=== PATIENT | female | born 1990 | race Hispanic/Latino ===

== ENCOUNTER 2021-08-27 21:31 | Inpatient (IN) | payer BC, OTHER ==
[2021-08-27 21:57] VITALS: BMI 35.6
[2021-08-27] MEDS ORDERED: Promethazine HCl 25 MG/ML VIAL IM PRN (22:27)
[2021-08-27] MEDS ORDERED: hydrALAZINE 20 MG/ML VIAL SLOW IVP PRN (22:27)
[2021-08-27] MEDS ORDERED: Ondansetron PF 4 MG/2 ML Vial IVP PRN (22:27)
[2021-08-27] MEDS ORDERED: Morphine 10 MG/ML VIAL SLOW IVP SCH (22:45)
[2021-08-27] MEDS ORDERED: Lactated Ringer's 1,000 ML IV SCH ×2 (23:00)
[2021-08-27 23:17] LABS: Hemoglobin 10.7 g/dL (12.0-15.5); Mean Corpuscular Volume 88.2 fl (81.6-98.3); Mean Platelet Volume 12.7 fl (7.4-10.4); Platelet Count 177 10x3/uL (150-450); RBC Distribution Width 13.4 % (11.5-14.5); Red Blood Cell (RBC) Count 3.57 10x6/uL (3.90-5.03); White Blood Cell (WBC) Count 7.9 10x3/uL (3.5-10.5)
[2021-08-27] MEDS: Promethazine HCl 25 MG/ML VIAL IM SCH (23:24)
[2021-08-28 00:01] LABS: Syphilis Antibody Nonreactive (Nonreactive); Syphilis Antibody Index 0.02 S/CO (<1.00 Non-Reactive)
[2021-08-28 00:02] LABS: Hep B Surf Ag Non-Reactive S/CO (NonReactive)
[2021-08-28 00:05] LABS: HBSAg Index 0.13 S/CO (0-0.99)
[2021-08-28] MEDS: Promethazine HCl 25 MG/ML VIAL IM SCH (00:16)
[2021-08-28] MEDS ORDERED: Famotidine/PF 20 mg/2ml Vial SLOW IVP PRN (00:56)
[2021-08-28] MEDS ORDERED: Bicitra 30 ML UDCUP PO PRN (00:56)
[2021-08-28] MEDS ORDERED: ceFAZolin 2 GM/Dextrose 50 ML 2 GM in Premix Bag 1 BAG IVPB SCH (01:00)
[2021-08-28] MEDS ORDERED: ceFAZolin 2 GM/Dextrose 50 ML IVPB ONE (01:02)
[2021-08-28] MEDS ORDERED: Oxytocin 10 UNITS/ML VIAL ONE ×2 (01:12→01:51)
[2021-08-28] MEDS ORDERED: Ondansetron PF 4 MG/2 ML Vial ONE (01:12)
[2021-08-28] MEDS ORDERED: Dexamethasone 4 mg/ml Vial ONE (01:12)
[2021-08-28] MEDS ORDERED: Phenylephrine 40 MG/NS 250 ML 250 ML ONE (01:13)
[2021-08-28] MEDS ORDERED: Ketorolac Tromethamine 30 MG/ML VIAL ONE (01:13)
[2021-08-28] MEDS ORDERED: Morphine PF 10 MG/10 ML VIAL ONE (01:13)
[2021-08-28] MEDS ORDERED: ePHEDrine Sulfate 50 MG/10 ML VIAL ONE (01:25)
[2021-08-28] MEDS ORDERED: diphenhydrAMINE 50 MG/ML VIAL IVP PRN (01:38)
[2021-08-28] MEDS ORDERED: Fentanyl 100 MCG/2 ML VIAL SLOW IVP PRN (01:38)
[2021-08-28] MEDS ORDERED: Ondansetron HCl/PF 4 MG/2 ML Vial IVP PRN (01:38)
[2021-08-28] MEDS ORDERED: Hydrocerin (Eucerin) Cream 120 gm Jar TOP PRN (01:38)
[2021-08-28] MEDS ORDERED: Naloxone HCl 0.4 mg/ml Vial IVP PRN ×2 (01:38)
[2021-08-28] MEDS ORDERED: Naloxone HCl 0.4 mg/ml Vial IV PRN (01:38)
[2021-08-28] MEDS ORDERED: L&D-Morphine 4 MG/ML VIAL SLOW IVP PRN (01:38)
[2021-08-28] MEDS ORDERED: Meperidine HCl/PF 25 MG/ML VIAL SLOW IVP PRN (01:38)
[2021-08-28] MEDS ORDERED: Promethazine HCl 25 MG/ML VIAL IM PRN (01:38)
[2021-08-28] MEDS ORDERED: Ondansetron PF 4 MG/2 ML Vial IVP PRN ×2 (01:38→04:46)
[2021-08-28] MEDS ORDERED: Promethazine HCl 25 MG SUPP PR PRN (01:38)
[2021-08-28] MEDS ORDERED: Communication Order-Pharmacy FS SCH (01:45)
[2021-08-28] MEDS ORDERED: Ketorolac Tromethamine 30 MG/ML VIAL IVP SCH (01:45)
[2021-08-28] MEDS ORDERED: diphenhydrAMINE 50 MG/ML VIAL ONE (01:56)
[2021-08-28] MEDS ORDERED: Esmolol 100 MG/10 ML VIAL ONE (02:04)
[2021-08-28] MEDS ORDERED: PHENYLEPHRINE-NS 100 MCG/ML 10 ML SYRINGE ONE (02:24)
[2021-08-28] MEDS ORDERED: Fentanyl 100 MCG/2 ML VIAL ONE (03:34)
[2021-08-28 04:02] LABS: ALT (SGPT) 28 U/L (8-55); AST (SGOT) 63 U/L (5-34); Albumin 3.1 g/dL (3.5-5.0); Alkaline Phosphatase 147 U/L (40-110); Anion Gap 16 mmol/L (10-20); BUN (Urea Nitrogen) 7 mg/dL (7.0-18.7); Bilirubin, Total 0.3 mg/dL (0.2-1.2); Calc. Creatinine Clearance 232 mL/min (70-130); Calcium 8.6 mg/dL (7.8-10.44); Carbon Dioxide 18 mmol/L (22-29); Chloride 105 mmol/L (98-107); Globulin 3.2 g/dL (2.4-3.5); Glucose 145 mg/dL (70-105); Potassium 3.8 mmol/L (3.5-5.1); Protein, Total 6.3 g/dL (6.0-8.3); Sodium 135 mmol/L (136-145)
[2021-08-28] MEDS ORDERED: Boostrix 0.5 ML (Tdap) VIAL IM ONE (04:46)
[2021-08-28] MEDS ORDERED: Lanolin Ointment 7 GM TUBE TOP PRN (04:46)
[2021-08-28] MEDS ORDERED: hydrALAZINE 20 MG/ML VIAL SLOW IVP PRN (04:46)
[2021-08-28] MEDS: Ketorolac Tromethamine 30 MG/ML VIAL IVP PRN ×2 (07:43→13:35)
[2021-08-28] MEDS: Prenatal Vitamin 1 TAB PO SCH (07:46)
[2021-08-28] MEDS ORDERED: diphenhydrAMINE 25 MG CAP PO PRN (09:51)
[2021-08-28 16:01] LABS: SARS-CoV-2 PCR by NAA Not Detected (NotDetected)
[2021-08-28] MEDS: HYDROcodone/Acetaminophen 5/325 mg Tablet PO PRN (20:05)
[2021-08-28] MEDS: Docusate 100 MG CAP PO SCH (22:17)
[2021-08-29] MEDS: HYDROcodone/Acetaminophen 5/325 mg Tablet PO PRN ×4 (01:44→17:56)
[2021-08-29 03:44] LABS: Mean Corpuscular HGB CONC 32.6 g/dL (32.0-36.0); Mean Corpuscular Hemoglobin 29.5 pg (27.0-33.0); Mean Corpuscular Volume 90.5 fl (81.6-98.3); Mean Platelet Volume 12.9 fl (7.4-10.4); Platelet Count 151 10x3/uL (150-450); RBC Distribution Width 13.8 % (11.5-14.5); Red Blood Cell (RBC) Count 3.05 10x6/uL (3.90-5.03); White Blood Cell (WBC) Count 7.3 10x3/uL (3.5-10.5)
[2021-08-29] MEDS: Ibuprofen 800 MG TAB PO SCH ×3 (05:21→21:20)
[2021-08-29] MEDS: Prenatal Vitamin 1 TAB PO SCH (08:55)
[2021-08-29] MEDS: Docusate 100 MG CAP PO SCH ×2 (08:55→21:20)
[2021-08-29] MEDS ORDERED: Simethicone Chewable 80 MG TAB PO PRN (16:15)
[2021-08-30] MEDS: HYDROcodone/Acetaminophen 5/325 mg Tablet PO PRN ×3 (00:07→10:37)
[2021-08-30] MEDS: Ibuprofen 800 MG TAB PO SCH (05:33)
[2021-08-30 07:52] VITALS: BP 91/59; TEMP 98.3
[2021-08-30] MEDS: Prenatal Vitamin 1 TAB PO SCH (09:22)
[2021-08-30] MEDS: Docusate 100 MG CAP PO SCH (09:22)
== END 2021-08-30 10:45 | disposition home or self-care (01) | DRG 788 ==
LOC: CSHLD/OP 21:31 → CSHLD 23:04 → OBSVTOIN 23:04 → CSHLD 08-28 01:47 → CSHPED 08-28 04:55 → CSHPP 08-28 13:52
PROVIDERS: ADMIT Obstetrics & Gynecology; ATTEND Obstetrics & Gynecology
PROC: 10D00Z1 Extraction of Products of Conception, Low, Open Approach (ICD-10-PCS; principal; 2021-08-28)
DX: O34.211 Maternal care for low transverse scar from previous cesarean delivery (principal); Z3A.38 38 weeks gestation of pregnancy; Z37.0 Single live birth; Z20.822 Contact with and (suspected) exposure to COVID-19; O69.81X0 Labor and delivery complicated by cord around neck, without compression, not applicable or unspecified; N32.89 Other specified disorders of bladder; O99.892 Other specified diseases and conditions complicating childbirth; Z90.49 Acquired absence of other specified parts of digestive tract; Z91.040 Latex allergy status; Z86.16 Personal history of COVID-19; Z79.899 Other long term (current) drug therapy; Z79.82 Long term (current) use of aspirin
CPT/HCPCS: 36415; 80053; 82570; 84156; 85027; 86780; 86850; 86900; 86901; 87340; 93005; 93010; J1100; J1200; J1885; J2270; J2274; J2405; J2550; J2590; J3010; J7120; U0003; U0005